=== PATIENT | male | born 1975 | race Caucasian/White ===

== ENCOUNTER 2018-05-04 22:20 | Emergency (ER) | payer SELFPAY ==
--- NOTE | 2018-05-04 22:32 | NUR ---
Patient called from Triage on 3 occasions. 2209, 2220, 2230. Patient not in waiting room. No response.
== END 2018-05-04 22:33 | disposition left against medical advice (07) ==
LOC: ER 22:24
DX: Z53.21 Procedure and treatment not carried out due to patient leaving prior to being seen by health care provider (principal)